=== PATIENT | female | born 1935 | race Caucasian/White ===

== ENCOUNTER 2021-01-26 15:10 | Emergency (ER) | payer BC ==
[~2021-01-26] VITALS: Ht 170.2 cm; Wt 72.6 kg
[2021-01-26 15:10] VITALS: BP_SYST 164
[~2021-01-26 15:10] MED LIST: APIX5TAB PO; CHLO12TA9 PO; DILT120C52 PO; HYDR-507 PO
--- NOTE | 2021-01-26 15:10 | NUR ---
Placed in room 1 . Placed on monitoring engineer, blood pressure machine and pulse oximeter. To gown for exam. Side rails up. Report given to LUDIVINA Weston and LUDIVINA Mohamud
--- NOTE | 2021-01-26 15:23 | NUR ---
ER Dr. Acosta at bedside examining patient.
--- NOTE | 2021-01-26 15:29 | NUR ---
Pt BIB by ambulance for s/p 1 day moderna vaccine. States that she was in fine health when the vaccine was administered but then this morning she stated that she was having headache/nausea/bilateral arm pain/headahce/dizziness/SOB. Stated she took tylenol 2 hours ago. Pending MD dispo.
[2021-01-26] MEDS ORDERED: ACETAMINOPHEN 500 MG TABLET PO ONE (15:45)
[2021-01-26] MEDS ORDERED: NACL 0.9% 1,000 ML IV ONE (16:00)
[2021-01-26 16:33] LABS: HEMOGLOBIN 13.4 g/dL (12.0-16.0); MEAN CORPUSCULAR HEMOGLOBIN 32 pg (27-31); MEAN CORPUSCULAR VOLUME 94 fL (79.0-98.0); RED BLOOD CELL COUNT(AUTO) 4.25 MIL/uL (4.2-6.2); WHITE BLOOD COUNT (AUTO) 7.1 K/uL (4.8-10.8)
[2021-01-26 16:34] LABS: BASOPHILS % (AUTO) 0.3 % (0.0-2.0); LYMPHOCYTES # (AUTO) 0.4 K/uL (1.0-5.5); LYMPHOCYTES % (AUTO) 6.2 % (20.5-51.5); MEAN CORPUSCULAR HGB CONC 34 % (32-36); MONOCYTES # (AUTO) 0.3 K/uL (0.0-1.0); MONOCYTES % (AUTO) 4.8 % (1.7-9.3); NEUTROPHILS # (AUTO) 6.3 K/uL (1.8-7.7); NEUTROPHILS % (AUTO) 88.7 % (40.0-70.0); PLATELET COUNT (AUTO) 118 K/uL (130-430); RED CELL DISTRIBUTION WIDTH 14.4 % (9.0-15.0)
[2021-01-26 16:35] LABS: ANION GAP 9 (5-15); CALCIUM 8.4 mg/dL (8.4-11.0); CHLORIDE 101 mmol/L (98-107); CREATININE 1.11 mg/dL (0.55-1.30); GLUCOSE 128 mg/dL (70-99); POTASSIUM 4.3 mmol/L (3.5-5.1); SODIUM SERUM 136 mmol/L (136-145); UREA NITROGEN, BLOOD 16 mg/dL (8-21)
[2021-01-26 16:38] LABS: INR 1.2 (0.8-1.2); PROTHROMBIN TIME 12.7 SECS (9.5-12.5)
[2021-01-26 16:41] LABS: ALANINE AMINOTRANSFERASE 19 U/L (12-78); ALBUMIN 3.9 g/dL (3.4-4.8); ASPARTATE AMINOTRANSFERASE 23 U/L (10-37); LIPASE 61 U/L (73-393); TOTAL BILIRUBIN 1.4 mg/dL (0.0-1.0)
[2021-01-26] MEDS ORDERED: ONDA4TAB5 PO (16:56)
--- NOTE | 2021-01-26 17:08 | NUR ---
Pt resting in bed, gave patient discharge instructions, verbalized understanding. Stated she will call someone to pick her up.
[2021-01-26 17:29] VITALS: BP_SYST 125
--- NOTE | 2021-01-26 17:32 | NUR ---
Patient given written and verbal discharge instructions and verbalizes understanding. ER MD Acosta discussed with patient the results and treatment provided. Patient in stable condition. ID arm band removed. IV catheter removed intact and dressing applied, no active bleeding. Rx of zofran given. Patient educated on pain management and to follow up with PMD. Pain Scale 0/10. Opportunity for questions provided and answered. Medication side effect fact sheet provided.
== END 2021-01-26 17:32 | disposition home or self-care (01) ==
LOC: SED 15:10
DX: T88.1XXA Other complications following immunization, not elsewhere classified, initial encounter (principal); M79.18 Myalgia, other site; Y92.89 Other specified places as the place of occurrence of the external cause
CPT/HCPCS: 36415; 80053; 83605; 71045; 83690; 84484; 85025; 85610; 85730; 87040; 93005; 96360; 99285; J7030